=== PATIENT | female | born 1980 | race Caucasian/White ===

== ENCOUNTER → 2016-07-04 | Outpatient (CLI) | payer MEDICARE, MEDICAID ==
[~2016-07-04] MED LIST: BUMEX1 MG PO; CARAFATE1 GM PO; COLACE100 MG PO; COREG25 MG PO; DELTASONE10 MG PO; DRISDOL50000 UNIT PO; DURAGESIC 25MC25 MCG TOP; FOLIC ACID1 MG PO; GABAPENTIN100 MG PO; IMURAN50 MG PO; KLONOPIN1 M1 PO; LEXAPRO20 MG PO; PERCOCET 5-3251 EACH PO; PROLIA60 MG/ML; PROTONIX40 MG PO; SPIRONOLACTONE25 MG PO; ZAROXOLYN5 MG PO
== END | disposition disaster alternative care site (69) ==
LOC: LGSMG 11:02
DX: N18.3 Chronic kidney disease, stage 3 (moderate) (principal); R53.82 Chronic fatigue, unspecified; M79.7 Fibromyalgia; M32.14 Glomerular disease in systemic lupus erythematosus; R11.0 Nausea; R53.1 Weakness

== ENCOUNTER → 2016-07-08 | Outpatient (CLI) | payer MEDICARE, MEDICAID | END | disposition disaster alternative care site (69) | LOC: LGSMG 11:20 | DX: N18.3 Chronic kidney disease, stage 3 (moderate) (principal); M32.14 Glomerular disease in systemic lupus erythematosus; R80.9 Proteinuria, unspecified ==

== ENCOUNTER → 2016-10-08 | Outpatient (CLI) | payer MEDICARE, MEDICAID | LOC: LGSMG 15:17 | DX: N17.9 Acute kidney failure, unspecified (principal); N18.9 Chronic kidney disease, unspecified ==

== ENCOUNTER → 2016-10-27 | Outpatient (CLI) | payer MEDICARE, MEDICAID | END | disposition disaster alternative care site (69) | LOC: LCOBG 13:10 | DX: Z32.00 Encounter for pregnancy test, result unknown (principal); O20.0 Threatened abortion ==

== ENCOUNTER → 2016-10-28 | Outpatient (CLI) | payer MEDICARE, MEDICAID | END | disposition disaster alternative care site (69) | LOC: LGSMG 11:41 | DX: N17.9 Acute kidney failure, unspecified (principal); N18.9 Chronic kidney disease, unspecified; R80.9 Proteinuria, unspecified ==

== ENCOUNTER → 2016-12-15 | Outpatient (CLI) | payer MEDICARE, MEDICAID ==
[2016-12-15 17:37] LABS: ALBUMIN 3.2 gm/dL (3.5-5.0); CALCIUM 8.4 mg/dL (8.5-10.5); CREATININE 1.3 mg/dL (0.5-1.1); PHOSPHORUS 3.7 mg/dL (2.5-4.9)
== END ==
LOC: LGSMG 17:17
PROVIDERS: Student in an Organized Health Care Education/Training Program
DX: E03.9 Hypothyroidism, unspecified (principal); N18.3 Chronic kidney disease, stage 3 (moderate); R42 Dizziness and giddiness